=== PATIENT | male | born 1990 | race Caucasian/White ===

== ENCOUNTER 2019-08-31 14:43 | Emergency (ER) | payer BC, OTHER ==
--- NOTE | 2019-08-31 15:23 | ER Document Report ---
ED Medical Screen (RME) - General Chief Complaint: Facial Droop Stated Complaint: FACIAL DROOP Time Seen by Provider: 08/31/19 15:12 Primary Care Provider: BEL DIETRICH PA [Primary Care Provider] - Follow up as needed Mode of Arrival: Ambulatory Information source: Patient Notes: ED for complaint of drooping to the left side of his face. He states his tongue feels very swollen he is got numbness to his face and he feels like sometimes has a little bit of trouble talking due to the swelling to his tongue. He states this started yesterday morning when he woke up. He states that he did not have a ride to the doctor when he tried to page his doctor but they did not get back to insulin the evening. He states he got a ride to the hospital today and now is here to be examined. 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 I spoke with states a stroke alert should be started I have greeted and performed a rapid initial assessment of this patient. A comprehensive ED assessment and evaluation of the patient, analysis of test results and completion of medical decision making process will be conducted by an additional ED providers. - Related Data Allergies/Adverse Reactions: No Known Allergies Allergy (Unverified 08/31/19 15:12) Physical Exam - Vital signs Vitals: Temp Pulse Resp BP Pulse Ox 98.9 F 80 20 172/95 H 98 08/31/19 15:04 08/31/19 15:04 08/31/19 15:04 08/31/19 15:04 08/31/19 15:04 Course - Vital Signs Vital signs: Temp Pulse Resp BP Pulse Ox 98.9 F 80 20 172/95 H 98 08/31/19 15:04 08/31/19 15:04 08/31/19 15:04 08/31/19 15:04 08/31/19 15:04 Doctor's Discharge - Discharge Referrals: BEL DIETRICH PA [Primary Care Provider] - Follow up as needed
--- NOTE | 2019-08-31 15:42 | ER Document Report ---
ED Neuro Symptoms/Deficit - General Mode of Arrival: Ambulatory - Related Data Home Medications: Lisinopril and zyrtec <NIC SHAIKH - Last Filed: 08/31/19 20:20> <SARAHI GARRETT - Last Filed: 08/31/19 21:06> - General Chief Complaint: Facial Droop Stated Complaint: FACIAL DROOP Time Seen by Provider: 08/31/19 15:12 Primary Care Provider: BEL DIETRICH PA [NO LOCAL MD] - Follow up as needed Notes: CHIEF COMPLAINT: Left facial droop yesterday HPI: 28-year-old male who is otherwise healthy presenting for drooping around the left mouth yesterday with a sensation of tongue thickening and some difficulty swallowing with speech. Patient woke up from sleep yesterday morning with the symptoms. Last known well was 2 days ago around 9 or 10 PM. Patient denies vision change or loss. Patient denies headache. He denies neck pain. He denies weakness numbness or tingling in the extremities. He denies chest pain shortness of breath. He denies abdominal pain. Patient denies other complaints at this time ROS: See HPI - all other systems were reviewed and are otherwise negative Constitutional: no fever Eyes: no drainage, no blurred vision ENT: no runny nose, no sore throat Cardiovascular: no chest pain Resp: no SOB, no cough GI: no vomiting, no diarrhea, no abdominal pain : no dysuria Integumentary: no rash Allergy: no hives Musculoskeletal: no extremity pain or swelling Neurological: Positive numbness/tingling, no weakness MEDICATIONS: I agree with the patient medications as charted by the RN. ALLERGIES: I agree with the allergies as charted by the RN. PAST MEDICAL HISTORY/PAST SURGICAL HISTORY: Reviewed and agree as charted by RN. SOCIAL HISTORY: Reviewed and agree as charted by RN. FAMILY HISTORY: No significant familial comorbid conditions directly related to patient complaint EXAM: Reviewed vital signs as charted by RN. CONSTITUTIONAL: Alert and oriented and responds appropriately to questions. Well-appearing; well-nourished HEAD: Normocephalic; atraumatic EYES: PERRL; Conjunctivae clear, sclerae non-icteric ENT: normal nose; no rhinorrhea; moist mucous membranes; pharynx without lesions noted, no uvula edema or deviation, no tonsillar hypertrophy, phonation normal NECK: Supple without meningismus; non-tender; no cervical lymphadenopathy, no masses CARD: RRR; no murmurs, no clicks, no rubs, no gallops; symmetric distal pulses RESP: Normal chest excursion without splinting or tachypnea; breath sounds clear and equal bilaterally; no wheezes, no rhonchi, no rales, pulse oximetry 98% on room air not hypoxic ABD/GI: Normal bowel sounds; non-distended; soft, non-tender, no rebound, no guarding; no palpable organomegaly or masses. BACK: The back appears normal and is non-tender to palpation, there is no CVA tenderness EXT: Normal ROM in all joints; non-tender to palpation; no cyanosis, no effusions, no edema SKIN: Normal color for age and race; warm; dry; good turgor; no acute lesions noted NEURO: Moves all extremities equally; sensory function intact. There is slight facial drooping around the left mouth with smiling. No abnormal tongue protr usion. There is no drooping of the left forehead or left cheek or eye. No ptosis. Sensation is intact in the left and right forehead, left and right cheeks, left and right mandible. Intact eyebrow raise. Speech is not slurred. Strength is equal 5/5 bilateral upper and lower extremities. Sensation is intact and equal bilateral upper and lower extremities. Gait is normal. NIH stroke scale of 1 for drooping of the left mouth and nasolabial fold PSYCH: The patient's mood and manner are appropriate. Grooming and personal hygiene are appropriate. MDM: 28-year-old male with drooping around the left mouth woke up from sleep yesterday with symptoms. Patient is outside of the window for TPA at this time. Called by the radiologist about his CT imaging as there was an area of hypoattenuation in the right frontal lobe area. Recommending MRI with contrast, discussed with attending Dr. Chambers who recommends also obtaining MRA of the head and neck. Patient has no other neurologic symptoms at this time. (NIC SHAIKH) - Related Data Allergies/Adverse Reactions: No Known Allergies Allergy (Unverified 08/31/19 15:12) Past Medical History - General Information source: Patient - Social History Smoking Status: Never Smoker Chew tobacco use (# tins/day): No Frequency of alcohol use: Occasional Drug Abuse: None Patient has homicidal ideation: No <NIC SHAIKH - Last Filed: 08/31/19 20:20> - Social History Frequency of alcohol use: Rare Drug Abuse: None Family History: Other - Dementia <SARAHI GARRETT - Last Filed: 08/31/19 21:06> Physical Exam - Vital signs Vitals: Temp Pulse Resp BP Pulse Ox 98.9 F 80 20 172/95 H 98 08/31/19 15:04 08/31/19 15:04 08/31/19 15:04 08/31/19 15:04 08/31/19 15:04 Course - Laboratory Result Diagrams: 08/31/19 16:07 08/31/19 16:07 <NIC SHAIKH - Last Filed: 08/31/19 20:20> - Laboratory Result Diagrams: 08/31/19 16:07 08/31/19 16:07 <SARAHI GARRETT - Last Filed: 08/31/19 21:06> - Re-evaluation Re-evalutation: 08/31/19 19:15 I spoke with FARIBA Brown for the neurosurgical service at [facility]. We discussed the patient's case and findings. He is scrubbed and right now will call me in 20 to 25 minutes to do further discuss the patient. Aware that images have been shared. 08/31/19 20:20 spoke with FARIBA Brown for [facility] neurosurgery. they do want patient transferred there to medicine service. also they placed a neurology consult there for patient. awaiting medicine service call back for transfer. (NIC SHAIKH) 08/31/19 20:35 Patient signed out to me at shift change by Qamar Read. He spoke with neurosurgery, Nate Mendes, at [facility] who is requested the patient be transferred to their facility for further evaluation and management. They requested hospitalist service with themselves and neurology has consulted. Pending callback from hospitalist service at this time. 08/31/19 21:05 Spoke with the transfer center at this time, they advised there is a change in plans, that neurosurgery will accept transfer to a surgical floor bed. The accepting physician will be Jakob Alcazar. They have placed a bed request and will call once a bed is available for transfer. Patient is stable at this time. Neurosurgery has no medication recommendations, we will continue to monitor and update them with any changes. (SARAHI GARRETT) - Vital Signs Vital signs: Temp Pulse Resp BP Pulse Ox 98.4 F 76 23 H 140/79 H 99 08/31/19 19:40 08/31/19 19:40 08/31/19 20:31 08/31/19 20:31 08/31/19 20:31 - Laboratory Laboratory results interpreted by me: 08/31/19 08/31/19 16:07 16:07 RDW 14.5 H Sodium 134.5 L Creatine Kinase 322 H Discharge <NIC SHAIKH - Last Filed: 08/31/19 20:20> - Discharge Admitting Provider: Dr. Alcazar Unit Admitted: Surgical Floor <SARAHI GARRETT - Last Filed: 08/31/19 21:06> - Discharge Clinical Impression: Brain lesion, Facial droop Disposition: [facility] Referrals: BEL DIETRICH PA [NO LOCAL MD] - Follow up as needed
--- NOTE | 2019-08-31 15:45 | RADIOLOGY REPORT (SQ) ---
EXAM DESCRIPTION: CT HEAD WITHOUT IMAGES COMPLETED DATE/TIME: 08/31/2019 3:27 pm REASON FOR STUDY: Left-sided facial droop COMPARISON: CT of the head without contrast from 04/19/2019. TECHNIQUE: Axial images acquired through the brain without intravenous contrast. Images reviewed wi th bone, brain and subdural windows. Images stored on PACS. All CT scanners at this facility use dose modulation, iterative reconstruction, and/or weight based d osing when appropriate to reduce radiation dose to as low as reasonably achievable (ALARA). [facility]: Dose Right [facility]: CareDose [facility]: Dose Right [facility]: Teradose 4D [facility]: Skataz RADIATION DOSE: CT Rad equipment meets quality standard of care and radiation dose reduction techniq ues were employed. CTDIvol: 53.2 mGy. DLP: 964 mGy-cm. LIMITATIONS: None. FINDINGS: There is an asymmetric area of hypoattenuation in the right frontal lobe that was not pres ent on the CT from 04/19/2013. There is no acute intracranial hemorrhage, extra-axial fluid collectio n, mass effect or midline shift. The the posada-white matter differentiation is preserved. There is n o effacement of the basal subarachnoid cisterns. The caliber the ventricles is concordant with the d egree of sulcation. The orbits and globes are intact. The paranasal sinuses are clear. There is no fracture of the calv arium. IMPRESSION: Asymmetric area of hypoattenuation in the right frontal lobe. Further evaluation with a contrast enhanced MRI is recommended. COMMENT: This report was called to ED Provider at15:35 on 08/31/2019. Quality ID # [id number]: Final reports with documentation of one or more dose reduction techniques (e.g., Au tomated exposure control, adjustment of the mA and/or kV according to patient size, use of iterative reconstruction technique) TECHNICAL DOCUMENTATION: JOB ID: [id number] 2010 [employer]- All Rights Reserved Reading location - IP/workstation name: [email or web address]
--- NOTE | 2019-08-31 15:49 | RADIOLOGY REPORT (SQ) ---
EXAM DESCRIPTION: CHEST SINGLE VIEW IMAGES COMPLETED DATE/TIME: 08/31/2019 3:33 pm REASON FOR STUDY: Left-sided facial droop COMPARISON: None. EXAM PARAMETERS: NUMBER OF VIEWS: One view. TECHNIQUE: Single frontal radiographic view of the chest acquired. RADIATION DOSE: NA LIMITATIONS: None. FINDINGS: LUNGS AND PLEURA: No opacities, masses or pneumothorax. No pleural effusion. MEDIASTINUM AND HILAR STRUCTURES: No masses. Contour normal. HEART AND VASCULAR STRUCTURES: Heart normal in size. Normal vasculature. BONES: No acute findings. HARDWARE: None in the chest. OTHER: No other significant finding. IMPRESSION: NO ACUTE RADIOGRAPHIC FINDING IN THE CHEST. TECHNICAL DOCUMENTATION: JOB ID: [id number] 2010 [employer]- All Rights Reserved Reading location - IP/workstation name: [email or web address]
[2019-08-31 16:20] LABS: ABSOLUTE BASOPHILS # (AUTO) 0.1 10^3/uL (0.0-0.2); ABSOLUTE EOSINOPHILS # (AUTO) 0.1 10^3/uL (0.0-0.6); ABSOLUTE MONOCYTES (AUTO) 0.9 10^3/uL (0.1-1.4); ABSOLUTE NEUT (AUTO) 5.3 10^3/uL (1.7-8.2); BASOPHILS % (AUTO) 0.7 % (0-2); EOSINOPHILS % (AUTO) 0.9 % (0-6); HEMATOCRIT 41.8 % (37.9-51.0); HEMOGLOBIN 14.7 g/dL (13.5-17.0); LYMPHOCYTES % (AUTO) 32.2 % (13-45); MEAN CORPUSCULAR HGB CONC 35.2 g/dL (32.0-36.0); MEAN CORPUSCULAR VOLUME 83 fl (80-97); MONOCYTES % (AUTO) 9.9 % (3-13); PLATELET COUNT 239 10^3/uL (150-450); RED BLOOD COUNT 5.07 10^6/uL (4.35-5.55); RED CELL DISTRIBUTION WIDTH 14.5 % (11.5-14.0); SEGMENTED NEUTROPHILS % (AUTO) 56.3 % (42-78); TOTAL CELLS COUNTED % (AUTO) 100 %; WHITE BLOOD COUNT 9.4 10^3/uL (4.0-10.5)
[2019-08-31 16:25] LABS: INTERNATIONAL RATION (INR) 0.98; PARTIAL THROMBOPLASTIN TIME 28.1 SEC (23.5-35.8)
[2019-08-31 16:36] LABS: ALBUMIN 4.7 g/dL (3.5-5.0); ALKALINE PHOSPHATASE 40 U/L (38-126); ANION GAP 8 (5-19); ASPARTATE AMINO TRANSFERASE 29 U/L (17-59); BILIRUBIN,TOTAL 0.3 mg/dL (0.2-1.3); BLOOD UREA NITROGEN 14 mg/dL (7-20); CALCIUM 9.5 mg/dL (8.4-10.2); CARBON DIOXIDE 26 mmol/L (22-30); CHLORIDE 101 mmol/L (98-107); CREATINE KINASE 322 U/L (55-170); GLUCOSE 105 mg/dL (75-110); POTASSIUM 4.2 mmol/L (3.6-5.0); TOTAL PROTEIN 7.7 g/dL (6.3-8.2)
[2019-08-31 17:02] LABS: CREATINE KINASE MB 2.45 ng/mL (<4.55)
[2019-08-31 17:05] LABS: TROPONIN I < 0.012 ng/mL
--- NOTE | 2019-08-31 18:37 | RADIOLOGY REPORT (SQ) ---
EXAM DESCRIPTION: MRI HEAD COMBO IMAGES COMPLETED DATE/TIME: 08/31/2019 6:11 pm REASON FOR STUDY: abn head ct mouth droop. do with contrast COMPARISON: CT 08/31/2019 TECHNIQUE: Multiplanar imaging includes noncontrasted T1, T2, FLAIR, diffusion with ADC map and post gadolinium contrast T1 sequences. Images stored on PACS. CONTRAST TYPE AND DOSE: Contrast type and dose not recorded here. Refer to technologist's notes. ML RENAL FUNCTION: Not indicated. ACR Type II contrast agent associated with few, if any, unconfounded cases of NSF LIMITATIONS: None. FINDINGS: ANATOMY: No anomalies. Normal vascular flow voids. Pituitary fossa normal. CSF SPACES: Normal in size and contour. No hemorrhage. CEREBRUM: The somewhat triangular-shaped area of decreased attenuation on the prior CT is seen there is increased T2 and FLAIR signal. This does not show with abnormal diffusion on the ADC map. On the contrast images there is slight central enhancement. POSTERIOR FOSSA: No signal alteration. No hemorrhage. No edema, masses, or mass effect. Internal radha tory canals, cerebellopontine angles, mastoids normal. No enhancing lesions. No abnormal enhancement post contrast. DIFFUSION IMAGING: Negative for acute or subacute infarction. ORBITS: No masses. Globes normal. PARANASAL SINUSES: No fluid levels. Mucosa normal. OTHER: No other significant finding. IMPRESSION: There is a small enhancing lesion in the right posterior frontal lobe with a small amoun t of edema around it. Concerning for neoplasm. EVIDENCE OF ACUTE STROKE: NO. TECHNICAL DOCUMENTATION: JOB ID: [id number] 2010 [employer]- All Rights Reserved Reading location - IP/workstation name: [email or web address]
--- NOTE | 2019-08-31 18:39 | RADIOLOGY REPORT (SQ) ---
EXAM DESCRIPTION: MRA HEAD WITHOUT IMAGES COMPLETED DATE/TIME: 08/31/2019 6:11 pm REASON FOR STUDY: stroke symptoms COMPARISON: None. TECHNIQUE: Axial 3-D [id number]-wm-[id number] acquisition imaging performed through the brain in the area of t he [place]. Images reformatted using 3-D MIPS. LIMITATIONS: None. FINDINGS: SOURCE IMAGES: No unexpected findings on source images. No large masses. 3-D MIP: No aneurysm. No occlusions. No significant stenosis. OTHER: No other significant finding. IMPRESSION: NORMAL MRA OF THE [place]. TECHNICAL DOCUMENTATION: JOB ID: [id number] 2010 [employer]- All Rights Reserved Reading location - IP/workstation name: [email or web address]
--- NOTE | 2019-08-31 18:42 | RADIOLOGY REPORT (SQ) ---
EXAM DESCRIPTION: MRA NECK COMBO IMAGES COMPLETED DATE/TIME: 08/31/2019 6:11 pm REASON FOR STUDY: stroke symptoms COMPARISON: None. TECHNIQUE: MRA of the carotid and vertebral arteries was performed using 2D and 3D aedp-lg-zhrxvi te chniques without and with the use of gadolinium. 3-D MIPs performed at the workstation and stored on PACS. CONTRAST TYPE AND DOSE: Contrast type and dose not recorded here. Refer to technologist's notes. ML RENAL FUNCTION: Not indicated. ACR Type II contrast agent associated with few, if any, unconfounded cases of NSF LIMITATIONS: None. FINDINGS: GREAT VESSEL ORIGINS: Normal. VERTEBRAL ARTERIES: No stenoses. No evidence for aneurysm or dissection. RIGHT CAROTID SYSTEM: No significant stenosis. LEFT CAROTID SYSTEM: No significant stenosis. OTHER: No other significant finding. IMPRESSION: NORMAL MRA OF THE CAROTIDS WITH AND WITHOUT CONTRAST. COMMENT: Quality ID #[id number]: Measurements of distal internal carotid diameter were used as the denomina tor for stenosis measurement. TECHNICAL DOCUMENTATION: JOB ID: [id number] 2010 [employer]- All Rights Reserved Reading location - IP/workstation name: [email or web address]
--- NOTE | 2019-09-01 08:04 | EKG REPORT ---
SEVERITY:- NORMAL ECG - SINUS RHYTHM : Confirmed by: Louise Alanis MD 01-Sep-2019 08:04:19
[2019-09-01 08:54] VITALS: BP 144/97
== END 2019-09-01 08:40 | disposition short-term general hospital (02) ==
LOC: ER 14:43
DX: G93.9 Disorder of brain, unspecified (principal); R29.810 Facial weakness; R13.10 Dysphagia, unspecified
CPT/HCPCS: 93005; 99285; 36415; 82553; 82550; 85025; 85610; 85730; 80053; 84484; 70553; 70544; 70549; 71045; 70450; 93010; A9576